=== PATIENT | female | born 1965 | race Caucasian/White ===

== ENCOUNTER 2017-01-16 18:42 | Emergency (ER) | payer OTHER ==
[~2017-01-16] VITALS: Ht 167.6 cm; Wt 93.5 kg
[2017-01-16 18:45] VITALS: Ht 167.6 cm; Wt 93.5 kg
[2017-01-16] MEDS ORDERED: HC30CR25 TOP (19:22)
[2017-01-16] MEDS ORDERED: BEN25 PO (19:23)
[2017-01-16] MEDS ORDERED: PRED20TA PO (19:23)
--- NOTE | 2017-01-16 21:57 | ERD ---
ER Documentation Chief Complaint Date/Time DATE: 01/16/17 TIME: 21:54 Chief Complaint gen body rash with itch HPI This patient is a 51-year-old otherwise healthy female presenting to the emergency department with complaints of rash on her anterior surfaces of her bilateral upper extremities as well as the anterior surfaces of her bilateral thighs, this began yesterday after cleaning an apartment that had lots of dust. She believes some of the dust got onto her arms and legs. Rash began on the arms but then spread to the legs. She has been using hydrocortisone topically at home with mild relief. She denies any shortness of breath, dizziness, throat pain, or other symptoms currently. ROS All systems reviewed and are negative except as per history of present illness. Medications Home Meds Active Scripts Prednisone* (Prednisone*) 20 Mg Tab, 20 MG PO DAILY for 3 Days, #3 TAB Prov:REJI HICKEY PA-C 01/16/17 Diphenhydramine Hcl* (Benadryl*) 25 Mg Cap, 25 MG PO Q6, #30 CAP Prov:REJI HICKEY PA-C 01/16/17 Hydrocortisone* Topical (Hydrocortisone* Topical) 2.5%-28.3 Gm Cream..g., 1 APPLIC TOP BID, #1 TUB Prov:REJI HICKEY PA-C 01/16/17 Allergies Allergies: Coded Allergies: No Known Allergy (Unverified , 01/16/17) PMhx/Soc History of Surgery: Yes (R Knee Surgery,Total Hysterectomy) Anesthesia Reaction: No Hx Neurological Disorder: No Hx Respiratory Disorders: No Hx Cardiac Disorders: No Hx Psychiatric Problems: Yes (Insomnia) Hx Miscellaneous Medical Probl: No Hx Alcohol Use: No Hx Substance Use: No Hx Tobacco Use: No Smoking Status: Never smoker Physical Exam Vitals Vital Signs Date Time Temp Pulse Resp B/P Pulse Ox O2 Delivery O2 Flow Rate FiO2 01/16/17 18:45 97.9 76 20 135/72 100 Physical Exam Const: Toxic, well-appearing female in no acute distress. Head: Atraumatic Eyes: Normal Conjunctiva ENT: Normal External Ears, Nose and Mouth. Neck: Full range of motion..~ No meningismus. Resp: Clear to auscultation bilaterally Cardio: Regular rate and rhythm, no murmurs Skin: Generalized macular papular rash to the ventral surfaces of the extremities bilaterally and the anterior surface of the thighs bilaterally. No vesicles noted. Back: No midline or flank tenderness Ext: No cyanosis, or edema Neur: Awake and alert Psych: Normal Mood and Affect Procedures/MDM 51-year-old female presents to the emergency department with complaints of rash. History and physical examination is consistent with an allergic urticaria. The patient did not require treatment in the department. Her vital signs were within normal limits. No signs of respiratory distress. No signs of anaphylaxis. The patient was stable for discharge with a prescription for prednisone, Benadryl, and hydrocortisone topical. She agreed with the discharge plan and diagnosis. Strict ER return precautions were discussed. Close follow-up within 1-2 days with the primary care physician was advised. No evidence of life-threatening disease process at time of discharge. Departure Diagnosis: Primary Impression: Rash and other nonspecific skin eruption Condition: Fair Patient Instructions: Self-Care for Skin Rashes Ref[facility]: [facility] Usted se pa hecho un examen mdico de control que le indica que no est en miladys condicin que requiera tratamiento urgente en el Departamento de Emergencia. Un estudio ms profundo y el tratamiento de starr condicin pueden esperar sin ningn riesgo hasta que usted sea atendida/o en el consultorio de starr mdico o miladys cl shira. Es responsabilidad suya arreglar miladys concha para el seguimiento del linda. MANEJO DE CONDICIONES NO URGENTES EN EL FUTURO 1) Si usted tiene un mdico de atencin primaria: Usted debera llamar a starr mdico de atencin primaria antes de venir al departamento de emergencia. Despus de las horas de consultorio, starr doctor o starr asociado/a est disponible por telfono. El mdico o enfermero de edu en el servicio telefnico puede asesorarle por [facility] medio para atender el problema, o linda contrario se puede programar miladys concha. 2) Si usted no tiene un mdico de atencin primaria: Llame al mdico o clnica de referencia que aparece abajo candace las horas de consultorio para hacer miladys concha para que le vean. CLINICAS: [place] [phone] [facility] [phone] [facility] [phone] [place] [phone] [place] [address] [phone] [facility] [phone] [address] Additional Instructions: No mas mejor en 2-3 perkins, regresar. Mas peor en 24 horas, regresear rapidamente. Ir a doctor primario in 5-7 perkins. Usar instrucciones cuando vinny medicamento. REJI HICKEY PA-C Jan 16, 2017 21:57
== END 2017-01-16 19:35 | disposition home or self-care (01) ==
LOC: FTE 18:42
DX: R21 Rash and other nonspecific skin eruption (principal)
CPT/HCPCS: 99283